=== PATIENT | male | born 1945 | race Caucasian/White ===

== ENCOUNTER 2019-12-09 19:42 | Emergency (ER) | payer MEDICARE, MEDICAID ==
[2019-12-09] MEDS ORDERED: Furosemide 40 MG/4 ML VIAL IVPUSH ONE (20:22)
[2019-12-09] MEDS ORDERED: Albuterol/Ipratropium 3.0-0.5 MG/3 ML Neb Soln NEB ONE (20:23)
--- NOTE | 2019-12-09 20:25 | EDM.PDOC ---
ED HPI GENERAL MEDICAL PROBLEM - General Chief Complaint: Respiratory Problem Stated Complaint: SOB Time Seen by Provider: 12/09/19 20:05 Source of Information: Reports: Patient, [facility] Records, RN History Limitations: Reports: No Limitations - History of Present Illness INITIAL COMMENTS - FREE TEXT/NARRATIVE: ssent in from SNf with increase sob in the last 2days has heart surgery about one monht ago laura had leg swellign and sob no chst SOB worse with exertion has to be given oxygen and neb to improve oxygennation has schedule to have lasix increased to 40 mg tomorrow back pain Pain Score (Numeric/FACES): 10 - Related Data Home Meds: Home Meds Acetaminophen [Tylenol Extra Strength] 1,000 mg PO TID 12/09/19 [History] Albuterol/Ipratropium [DuoNeb 3.0-0.5 MG/3 ML] 1 ampule NEB Q4H PRN 12/09/19 [ History] Alfuzosin [Uroxatral] 10 mg PO DAILY 12/09/19 [History] Amantadine [Symmetrel] 100 mg PO BID 12/09/19 [History] Aspirin [Halfprin] 81 mg PO DAILY 12/09/19 [History] Bisacodyl [Dulcolax] 1 each RECTAL DAILY PRN 12/09/19 [History] Carbidopa/Levodopa [Sinemet 25-100 mg Tablet] 3 tab PO Q4H 12/09/19 [History] Docusate Sodium/Sennosides [Senna Plus] 1 tab PO DAILY PRN 12/09/19 [History] Finasteride 5 mg PO DAILY 12/09/19 [History] Furosemide [Lasix] 40 mg PO DAILY 12/09/19 [History] Gabapentin [Neurontin] 300 mg PO TID 12/09/19 [History] Magnesium Oxide 500 mg PO BID 12/09/19 [History] Multivitamin with Minerals [Multivitamins with Minerals] 1 tab PO DAILY [History] Nitroglycerin [Nitrostat] 0.4 mg SL DAILY PRN 12/09/19 [History] Omeprazole 20 mg PO DAILY 12/09/19 [History] Phytonadione [Vitamin K] 100 mcg PO DAILY 12/09/19 [History] Warfarin Sodium [Coumadin] 2.5 mg PO DAILY 12/09/19 [History] Warfarin Sodium [Coumadin] 5 mg PO DAILY 12/09/19 [History] amLODIPine Besylate [Norvasc] 10 mg PO DAILY 12/09/19 [History] atorvaSTATin [Lipitor] 40 mg PO DAILY 12/09/19 [History] polyethylene glycoL 3350 [MiraLAX] 17 gm PO DAILY 12/09/19 [History] ED ROS GENERAL - Review of Systems Review Of Systems: See Below Constitutional: Reports: Malaise HEENT: Reports: No Symptoms Respiratory: Reports: Shortness of Breath, Wheezing Cardiovascular: Reports: Dyspnea on Exertion, Edema, Orthopnea. Denies: Chest Pain Endocrine: Reports: Fatigue GI/Abdominal: Denies: Abdominal Pain, Anorexia : Reports: No Symptoms Musculoskeletal: Reports: Back Pain Skin: Reports: No Symptoms Neurological: Reports: No Symptoms Psychiatric: Reports: No Symptoms ED EXAM, GENERAL - Physical Exam Exam: See Below Exam Limited By: No Limitations General Appearance: Alert, WD/WN, No Apparent Distress, Other (was dyspneic on arrival) Eye Exam: Bilateral Eye: EOMI Ears: Normal External Exam Ear Exam: Bilateral Ear: TM Dull Nose: Clear Rhinorrhea Throat/Mouth: Normal Inspection, Inflammation Head: Atraumatic, Normocephalic Neck: Limited Range of Motion (chronically) Respiratory/Chest: Decreased Breath Sounds. No: Rhonchi, Wheezing Cardiovascular: Normal Peripheral Pulses, Regular Rate, Rhythm GI/Abdominal: Soft, Non-Tender Neurological: Alert, Oriented Psychiatric: Normal Affect Course - Vital Signs Last Recorded V/S: Last Vital Signs Temp 36.4 C 12/09/19 19:42 Pulse 56 L 12/09/19 19:42 Resp 17 12/09/19 19:42 BP 139/49 L 12/09/19 19:42 Pulse Ox 97 12/09/19 19:42 - Orders/Labs/Meds Orders: Active Orders 24 hr Category Date Time Status RT Aerosol Therapy [RC] ASDIRECTED Care 12/09/19 20:23 Active Chest 2V [CR] Stat Exams 12/09/19 20:24 Taken INR,PT,PROTHROMBIN TIME [COAG] Stat Lab 12/09/19 20:24 Ordered UA W/MICROSCOPIC [URIN] Stat Lab 12/09/19 21:26 Ordered Sodium Chloride 0.9% [Saline Flush] Med 12/09/19 20:53 Active 10 ml FLUSH ASDIRECTED PRN Medication Orders Sodium Chloride (Saline Flush) 10 ml FLUSH ASDIRECTED PRN PRN Reason: Other Last Admin: 12/09/19 20:53 Dose: 10 ml Labs: Laboratory Tests 12/09/19 12/09/19 12/09/19 Range/Units 21:10 21:10 21:10 WBC 5.8 (4.5-12.0) X10-3/uL RBC 2.98 L (4.30-5.75) x10(6)uL Hgb 8.5 L (13.5-17.8) g/dL Hct 25.9 L (30.0-51.3) % MCV 86.8 (80-96) fL MCH 28.5 (27.7-33.6) pg MCHC 32.9 (32.2-35.4) g/dL RDW 16.4 H (11.5-15.5) % Plt Count 158 (125-369) X10(3)uL MPV 9.6 (7.4-10.4) fL Neut % (Auto) 72.4 (46-82) % Lymph % (Auto) 18.5 (13-37) % Kingfisher % (Auto) 6.1 (4-12) % Eos % (Auto) 1 (1.0-5.0) % Baso % (Auto) 2 (0-2) % Neut # (Auto) 4.1 (1.6-8.3) # Lymph # (Auto) 1.1 (0.6-5.0) # Kingfisher # (Auto) 0.4 (0.0-1.3) # Eos # (Auto) 0.1 (0.0-0.8) # Baso # (Auto) 0.1 (0.0-0.2) # Sodium 143 (135-145) mmol/L Potassium 5.6 H (3.5-5.3) mmol/L Chloride 109 (100-110) mmol/L Carbon Dioxide 23 (21-32) mmol/L BUN 38 H (7-18) mg/dL Creatinine 1.6 H (0.70-1.30) mg/dL Est Cr Clr Drug Dosing TNP Estimated GFR (MDRD) 43 L (>60) BUN/Creatinine Ratio 23.8 H (9-20) Glucose 95 (80-116) mg/dL Calcium 8.3 L (8.6-10.2) mg/dL Troponin I 29.6 (4.0-60.3) pg/mL NT-Pro-B Natriuret Pep 32181 H* (<=125) pg/mL Meds: Medications Generic Name Dose Route Start Last Admin Trade Name Freq PRN Reason Stop Dose Admin Sodium Chloride 10 ml 12/09/19 20:53 12/09/19 20:53 Saline Flush FLUSH 10 ml ASDIRECTED PRN Administration Other Discontinued Medications Generic Name Dose Route Start Last Admin Trade Name Freq PRN Reason Stop Dose Admin Albuterol/Ipratropium 3 ml 12/09/19 20:23 12/09/19 20:44 Duoneb 3.0-0.5 Mg/3 Ml NEB 12/09/19 20:24 3 ml ONETIME ONE Administration Furosemide 40 mg 12/09/19 20:22 12/09/19 20:44 Lasix IVPUSH 12/09/19 20:23 40 mg NOW ONE Administration - Re-Assessments/Exams Free Text/Narrative Re-Assessment/Exam: 12/09/19 22:05 patient had Neb and lasix 40mg IV symptoms improved was able to stop use of oxygen discussed with caregiver pt did request for pain medication , encouraged him to use medication prescribed from [facility] since he had no new problem causing exacerbation of pain symtom Departure - Departure Time of Disposition: 22:15 Disposition: DC/Tfer to SNF 03 Condition: Fair Clinical Impression: Shortness of breath on exertion, CHF (congestive heart failure), Anemia Clinical Impression: (Ruled Out): Hyponatremia - Discharge Information *PRESCRIPTION DRUG MONITORING PROGRAM REVIEWED*: Not Applicable *COPY OF PRESCRIPTION DRUG MONITORING REPORT IN PATIENT HOLDEN: Not Applicable Instructions: Anemia Referrals: PCP,None [Primary Care Provider] - Forms: ED Department Discharge Additional Instructions: 1) Start furosemide 40mg daily , may increase to 40mg in am and 20mg at noon if shrtness of breath gets worse 2) make appointment to see PCP 3) Continue with all other medications Sepsis Event Note - Evaluation Sepsis Screening Result: No Definite Risk - Focused Exam Vital Signs: Vital Signs Temp Pulse Resp BP Pulse Ox 12/09/19 19:42 36.4 C 56 L 17 139/49 L 97 Date Exam was Performed: 12/09/19 Time Exam was Performed: 22:03 - My Orders Last 24 Hours: My Active Orders 12/09/19 20:23 RT Aerosol Therapy [RC] ASDIRECTED 12/09/19 20:24 Chest 2V [CR] Stat INR,PT,PROTHROMBIN TIME [COAG] Stat 12/09/19 20:53 Sodium Chloride 0.9% [Saline Flush] 10 ml FLUSH ASDIRECTED PRN 12/09/19 21:26 UA W/MICROSCOPIC [URIN] Stat - Assessment/Plan Last 24 Hours: My Active Orders 12/09/19 20:23 RT Aerosol Therapy [RC] ASDIRECTED 12/09/19 20:24 Chest 2V [CR] Stat INR,PT,PROTHROMBIN TIME [COAG] Stat 12/09/19 20:53 Sodium Chloride 0.9% [Saline Flush] 10 ml FLUSH ASDIRECTED PRN 12/09/19 21:26 UA W/MICROSCOPIC [URIN] Stat
[2019-12-09] MEDS ORDERED: Sodium Chloride 0.9% 10 ML Syringe FLUSH PRN (20:53)
--- NOTE | 2019-12-10 10:45 | CR ---
INDICATION: Short of breath. CHEST, TWO VIEWS: AP and lateral views of the chest were obtained 12/09/2019 - no comparisons. Heart size is difficult to evaluate due to pleuroparenchymal change on the left and maybe somewhat enlarged. There is an aortic valve and mitral valve replacement present. Median sternotomy is noted. Overlying EKG leads are noted. Bibasilar pleuroparenchymal changes are noted, left greater than right which could be on the basis of pneumonia and pleuritis and should be correlated clinically. There also appears to be some patchy infiltration extending into the right upper lobe posteriorly. This may also represent pneumonia but should be correlated clinically. Bony structures are not well visualized The spine appears to be somewhat decreased in bone density with vertebroplasties times three, two in the lower thoracic, one in the upper lumbar area. IMPRESSION: 1. 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 2. Bibasilar pleuroparenchymal changes and right upper lobe infiltration suggesting pneumonia - correlate clinically as these findings may be partly on the basis of fibrosis. 3. Osteoporotic compressions with vertebroplasties; spine not well visualized, however. MTDD
== END 2019-12-09 22:27 ==
LOC: FB.ED 19:42
DX: I50.9 Heart failure, unspecified (principal); D64.9 Anemia, unspecified; Z79.01 Long term (current) use of anticoagulants; Z79.899 Other long term (current) drug therapy; Z79.82 Long term (current) use of aspirin
CPT/HCPCS: 36415; 71046; 80048; 81001; 83880; 84484; 85025; 94640; 96374; 99284; 99285; J1940; J7620-GY

== ENCOUNTER 2019-12-13 02:32 | Emergency (ER) | payer MEDICARE, MEDICAID ==
--- NOTE | 2019-12-13 04:46 | ER ---
DATE SEEN: 12/13/2019 REASON FOR VISIT: Code 100. HISTORY OF PRESENT ILLNESS: Francois is a 74-year-old male from [facility]. He has a history of CHF, open heart surgery, and anemia. He came in by ambulance with a code in progress. He was reported to have been found unresponsive at about 0120 hours, and he arrived here at 0231 hours. He was supposed to have been seen around 2330 hours, the last time was seen well. Upon arrival, the ambulance found him to be warm and to be in PEA, and they initiated ACLS protocol right away, chest compressions with the FABIO and got epinephrine x4. There was no shockable rhythm. Few minutes before they arrived, the rhythm was mostly asystole. Attempted intubation x3 with no success; however, they were actively bagging. Upon arrival, the patient was in asystole with no cardiopulmonary activity whatsoever or pause. Pupils were fixed and dilated. I pronounced him on arrival. Time of pronouncing was 0234 hours. FINAL IMPRESSION: . Possible causes, acute myocardial infection and respiratory failure. /[id number] JACKELYN/ALYSIA
== END 2019-12-13 02:34 | disposition expired ==
LOC: FB.ED 02:32
DX: I25.2 Old myocardial infarction; J96.90 Respiratory failure, unspecified, unspecified whether with hypoxia or hypercapnia
CPT/HCPCS: 92950; 99281; 99285